=== PATIENT | female | born 1960 | race Caucasian/White ===

== ENCOUNTER 2016-09-08 17:51 | Emergency (ER) | payer BC, MEDICARE ==
--- NOTE | ~2016-09-08 | ER ---
[facility] AGE: 55 Y [address] ROOM: [place] [id number] LOCATION: ED ADMIT DATE: 09/08/2016 ER/Outpatient Report DISCHARGE DATE: 09/08/2016 FAMILY PHYSICIAN: Kenzie Prieto MD ATTENDING PHYSICIAN: Andres Seymour Time of Arrival: 1751 hours. Time of Evaluation: 1805 hours. CHIEF COMPLAINT: Possible infection to her abscess. HISTORY OF PRESENT ILLNESS: This is a 55-year-old female, who presents to the ER. She states that she recently had an abscess drained in her left groin area on Monday. She states that they did pack it, and she did follow up yesterday, and they did repack it since the packing did fall out. She states she has had a lot of drainage from the area today. She maybe felt like she has been chilling. She has had no fever, however. No nausea or vomiting, but she states it is quite tender. The patient denies having any other lesions anywhere else. She states they did culture it, but she has not heard the results, and she is currently on Bactrim therapy. ALLERGIES: NO KNOWN ALLERGIES. MEDICATIONS: Please see medication list in nurse's notes. PAST MEDICAL HISTORY: 1. Osteoporosis. 2. Rheumatoid arthritis. 3. Hypercholesterolemia. 4. Spinal stenosis. 5. Recurring urinary tract infection. 6. Candidal rash to her groin area x2 weeks. 7. Depression. 8. Anxiety. PAST SURGICAL HISTORY: Cholecystectomy and partial hysterectomy. SOCIAL HISTORY: Denies smoking, drug, or alcohol use. [facility] AGE: 55 Y [address] ROOM: [place] [id number] LOCATION: ED ADMIT DATE: 09/08/2016 ER/Outpatient Report DISCHARGE DATE: 09/08/2016 FAMILY PHYSICIAN: Kenzie Prieto MD ATTENDING PHYSICIAN: Andres Seymour REVIEW OF SYSTEMS: All systems were reviewed and were negative with the exception of those discussed in the HPI. PHYSICAL EXAMINATION: VITAL SIGNS: Height 5 feet 1 inch stated, weight 122.9 kg taken, blood pressure is 142/74, pulse 72, respirations 16, temperature 98.7 degrees tympanically, and saturations 96% on room air. Deland Coma Score is 15. GENERAL: Alert, morbidly obese female, in no acute distress. LUNGS: Clear to auscultation bilaterally. No wheezes or crackles. Normal respiratory effort. HEART: Regular rate and rhythm. ABDOMEN: Obese. She does have an incision with packing in the left groin area, just above her leg crease. There is no erythema around the incision site. There is, however, some induration in that area, and that is tender to palpation. She does have a candidal-appearing rash noted to the folds of her skin. When I press on the abscess side, no purulent drainage is noted. LABORATORY DATA AND X-RAYS: CBC: White count is 7.3, hemoglobin is 12.5, platelets 206, ANC is 3.8. I did look up wound cultures as susceptibilities to antibiotics have not been cultured out yet. IMPRESSION: 1. Abscess to left groin with current packing in it. 2. Candidal rash to groin folds. ASSESSMENT AND PLAN: We did give the patient reassurance. I advised her to place warm packs to the area. She states she does have an appointment to see her primary care physician tomorrow, and I advised her to keep that appointment. She needs to continue to use her antibiotic and followup tomorrow. The patient understands and agrees with care. SUSANA MUIR PA-C FOR MD MUNIR DOBBINS/martha /[id number] d: 09/09/16 0126 t: 10/03/16 1643, OUTPATIENT REPORT
[2016-09-08 18:43] LABS: BASOPHIL # 0.1 K/uL (0.0-0.2); BASOPHIL % 0.7 %; EOSINOPHIL # 0.2 K/uL (0.0-0.5); EOSINOPHIL % 2.2 %; HEMATOCRIT 36.3 % (33.0-46.0); HEMOGLOBIN 12.5 g/dL (10.0-15.0); IMMATURE GRANULOCYTE % 0.3 %; LYMPHOCYTE # 2.6 K/uL (0.8-4.0); LYMPHOCYTE % 35.6 %; MCH 32.8 pg (27.0-34.0); MCHC 34.4 gm/dL (32.0-36.5); MCV 95.3 fl (83.0-98.0); MONOCYTE # 0.6 K/uL (0.0-1.0); MONOCYTE % 8.5 %; MPV 10.7 fl (9.4-12.4); NEUTROPHIL # (ANC) 3.8 K/uL (1.8-7.8); NEUTROPHIL % 52.7 %; NRBC % 0 /100WBC (0-0.00); PLATELET COUNT 206 K/uL (150-450); RBC 3.81 M/uL (3.50-5.50); RDW-CV 12.9 % (11.9-14.6); WBC 7.3 K/uL (4.0-11.0)
== END 2016-09-08 19:30 | disposition disaster alternative care site (69) ==
LOC: GMED 17:51
PROVIDERS: Physician Assistant Medical
DX: L02.214 Cutaneous abscess of groin (principal); B37.9 Candidiasis, unspecified; F41.9 Anxiety disorder, unspecified; F32.9 Major depressive disorder, single episode, unspecified; M48.00 Spinal stenosis, site unspecified; E78.00 Pure hypercholesterolemia, unspecified; M06.9 Rheumatoid arthritis, unspecified; N39.0 Urinary tract infection, site not specified; Z90.49 Acquired absence of other specified parts of digestive tract; Z90.710 Acquired absence of both cervix and uterus; Z79.899 Other long term (current) drug therapy; Z79.1 Long term (current) use of non-steroidal anti-inflammatories (NSAID)

== ENCOUNTER → 2016-09-16 | Outpatient (CLI) | payer BC, MEDICARE | END | disposition disaster alternative care site (69) | LOC: GRAD 06:26 | DX: M99.83 Other biomechanical lesions of lumbar region (principal); M51.26 Other intervertebral disc displacement, lumbar region; M54.9 Dorsalgia, unspecified; G95.89 Other specified diseases of spinal cord; M99.81 Other biomechanical lesions of cervical region; M99.51 Intervertebral disc stenosis of neural canal of cervical region; M54.2 Cervicalgia; M47.892 Other spondylosis, cervical region; M48.02 Spinal stenosis, cervical region; M51.36 Other intervertebral disc degeneration, lumbar region ==